=== PATIENT | male | born 1965 | race Caucasian/White ===

== ENCOUNTER 2018-10-19 12:55 | Emergency (ER) | payer SELFPAY ==
[2018-10-19] MEDS ORDERED: MORPHINE 4 MG/ML SYR ONE ×2 (13:38→15:46)
[2018-10-19] MEDS ORDERED: ONDANSETRON 4 MG/2 ML VIAL ONE (13:38)
[2018-10-19] MEDS ORDERED: NA CHLORIDE 0.9% 1,000 ML ONE (13:39)
[2018-10-19 13:43] LABS: Absolute Lymphocytes (CBC) 1.9 K/uL (0.7-4.9); Absolute Monocytes 0.8 K/uL (0.1-1.3); Eosinophils % 0.4 % (0-4.4); Hematocrit 46.9 % (39.6-49.0); Lymphocytes % 19.3 % (15.3-44.8); MCH 32.7 pg (27.0-35.0); MCV 93.7 fL (80-100); MPV 8.7 fL (7.6-11.3); Monocytes % 7.9 % (3.3-12.3); RBC Red Blood Cell Count 5.01 M/uL (4.33-5.43)
--- NOTE | 2018-10-19 14:55 | RAD REPORT ---
EXAM DESCRIPTION: CT - Abdomen Pelvis W Contrast - 10/19/2018 2:34 pm CLINICAL HISTORY: Abdominal pain with vomiting COMPARISON: none. TECHNIQUE: Computed axial tomography of the abdomen pelvis was obtained. 100 cc Isovue-300 was admin istered intravenously. Oral contrast was given All CT scans are performed using dose optimization technique as appropriate and may include automated exposure control or mA/KV adjustment according to patient size. FINDINGS: The liver, spleen, pancreas, adrenal and kidneys appear unremarkable. There is no evidence of diverticulitis. Bladder appears grossly normal. No ascites. Calcified right lower lobe granuloma IMPRESSION: No acute abnormality is displayed.
--- NOTE | 2018-10-19 16:46 | ER ---
Nurse's Notes [facility] Name: Jered Solano Age: 53 yrs Sex: Male : 1965 Arrival Date: 10/19/2018 Time: 12:59 Bed 14 Private MD: Diagnosis: Contusion of right front wall of thorax Presentation: 10/19 13:00 Presenting complaint: Patient states: i was playing football Wednesday and got hit in the tw2 ribs and i may have cracked one but i have been throwing up blood, bright red blood, and i cant keep anything down. Transition of care: patient was not received from another setting of care. Onset of symptoms was October 19, 2018. Risk Assessment: Do you want to hurt yourself or someone else? Patient reports no desire to harm self or others. Initial Sepsis Screen: Does the patient meet any 2 criteria? No. Patient's initial sepsis screen is negative. Does the patient have a suspected source of infection? No. Patient's initial sepsis screen is negative. Care prior to arrival: None. 13:00 Method Of Arrival: Ambulatory tw2 13:00 Acuity: MIAN 3 tw2 Historical: - Allergies: 13:01 No Known Allergies; tw2 - Home Meds: 13: None [Active]; tw2 - PMHx: 13:01 None; tw2 - PSHx: 13:01 None; tw2 - Immunization history:: Adult Immunizations up to date. - Social history:: Smoking status: Patient uses tobacco products, smokes one pack cigarettes per day. Patient uses street drugs, marijuana, "1/2 sack a week maybe". - Ebola Screening: : Patient denies travel to an Ebola-affected area in the 21 days before illness onset. Screenin:10 Abuse screen: Denies threats or abuse. Denies injuries from another. Nutritional ss screening: No deficits noted. Tuberculosis screening: No symptoms or risk factors identified. Never had TB. Fall Risk None identified. Assessment: 13:10 General: Appears in no apparent distress. comfortable, Behavior is calm, cooperative. ss Pain: Complains of pain in right lateral anterior chest and right lateral posterior chest Pain currently is 8 out of 10 on a pain scale. Quality of pain is described as aching, tender, Pain began 4days Is continuous, Aggravated by increased activity, repositioning. Neuro: Level of Consciousness is awake, alert, obeys commands, Oriented to person, place, time, situation. Cardiovascular: Capillary refill < 3 seconds is brisk in bilateral fingers. Respiratory: Airway is patent Respiratory effort is even, unlabored, Respiratory pattern is regular, symmetrical. GI: Reports epigastric pain, small amount of blood in emesis x 2-3 days. "it feels like stuff isn't going down.". : No signs and/or symptoms were reported regarding the genitourinary system. EENT: Oral mucosa is moist. Throat is clear. Derm: Skin is intact, is healthy with good turgor, Skin is dry, Skin is pink, warm \\T\\ dry. normal. Musculoskeletal: Circulation, motion, and sensation intact. Capillary refill < 3 seconds, is brisk, in bilateral fingers. Range of motion: intact in all extremities, Swelling absent. 14:25 Reassessment: Patient appears in no apparent distress at this time. Patient is alert, ss oriented x 3, equal unlabored respirations, skin warm/dry/pink. pt reports that pain is much better after morphine administration Patient states feeling better. 15:29 Reassessment: Patient appears in no apparent distress at this time. Patient and/or ph family updated on plan of care and expected duration. Pain level reassessed. Patient is alert, oriented x 3, equal unlabored respirations, skin warm/dry/pink. Pt c/o pain and requesting pain medication at this time, states, " The medicine helped for a little while but I'm really hurting again after going for all of those tests.". 17:05 Reassessment: Patient appears in no apparent distress at this time. Patient and/or ph family updated on plan of care and expected duration. Pain level reassessed. Patient is alert, oriented x 3, equal unlabored respirations, skin warm/dry/pink. Pt d/c home w/ family. Vital Signs: 13:01 BP 137 / 99; Pulse 109; Resp 18; Temp 98.0(O); Pulse Ox 99% on R/A; Pain 8/10; tw2 14:00 BP 132 / 87; Pulse 85; Resp 20; Pulse Ox 98% on R/A; ph 15:46 BP 118 / 87; Pulse 94; Resp 18; Pulse Ox 96% on R/A; ph 17:07 BP 122 / 87; Pulse 96; Resp 18; Temp 97.9; Pulse Ox 99% on R/A; ph ED Course: 12:59 Patient arrived in ED. sb2 13:01 Triage completed. tw2 13:01 Arm band placed on. tw2 13:02 D[facility] Cooper [facility]C [facility]. kb 13:02 Evre Jones MD is Attending Physician. kb 13:05 Melissa Mcmanus, RN is Primary Nurse. ph 13:10 Patient has correct armband on for positive identification. Bed in low position. Call ss light in reach. 13:39 Inserted saline lock: 20 gauge in right antecubital area, using aseptic technique. ss Blood collected. Patient maintains SpO2 saturation greater than 95% on room air. 14:25 Patient moved to CA via wheelchair. sj 14:32 CT completed. Patient tolerated procedure well. Patient moved back from CA. sj 15:47 No provider procedures requiring assistance completed. ph 17:06 IV discontinued, intact, bleeding controlled, No redness/swelling at site. Pressure ph dressing applied. Administered Medications: 13:34 Drug: NS 0.9% 1000 ml Route: IV; Rate: 1000 ml; Site: right antecubital; ss 17:08 Follow up: Response: No adverse reaction; IV Status: Completed infusion ph 13:34 Drug: Zofran 4 mg Route: IVP; Site: right antecubital; ss 14:25 Follow up: Response: No adverse reaction ss 13:39 Drug: morphine 4 mg Route: IVP; Site: right antecubital; ss 14:25 Follow up: Response: No adverse reaction; Pain is decreased ss 16:15 Drug: morphine 4 mg Route: IVP; Site: right antecubital; ph 17:08 Follow up: Response: No adverse reaction; Pain is decreased ph Outcome: 16:45 Discharge ordered by . kb 17:06 Discharged to home ambulatory, with family. ph 17:06 Condition: good 17:06 Discharge instructions given to patient, family, Instructed on discharge instructions, follow up and referral plans. medication usage, Demonstrated understanding of instructions, follow-up care, medications, Prescriptions given X 1. 17:09 Patient left the ED. ph Signatures: Dione Cooper FNP-C FNP-Ckb Jones, Susan sj Smirch, Shelby, RN RN ss Melissa Mcmanus, RN RN ph Toi, Amanda, RN RN tw2 Tahira Sánchez 2
--- NOTE | 2018-10-19 16:46 | EDPHYS ---
Physician Documentation [facility] Name: Jered Solano Age: 53 yrs Sex: Male : 1965 Arrival Date: 10/19/2018 Time: 12:59 Bed 14 Private MD: ED Physician Ever Jones HPI: 10/19 14:21 This 53 yrs old Male presents to ER via Ambulatory with complaints of RIB PAIN. kb 14:21 The patient or guardian reports chest pain that is located primarily in the right kb lateral posterior chest and right lateral anterior chest. Onset: The symptoms/episode began/occurred 5 day(s) ago. The pain does not radiate. Associated signs and symptoms: Pertinent positives: hematemesis, Pertinent negatives: abdominal pain, cough, diaphoresis, dizziness, headache, lower extremity pain, lower extremity swelling, lightheadedness, nausea, near syncope, palpitations, recent travel, shortness of breath, syncope. The chest pain is described as aching. Duration: The patient or guardian reports a single episode, that is still ongoing. Modifying factors: The symptoms are alleviated by nothing. the symptoms are aggravated by deep breath, movement, palpation of area. Severity of pain: At its worst the pain was moderate in the emergency department the pain is unchanged. The patient has not experienced similar symptoms in the past. Historical: - Allergies: 13: No Known Allergies; tw2 - Home Meds: 13: None [Active]; tw2 - PMHx: 13: None; tw2 - PSHx: 13: None; tw2 - Immunization history:: Adult Immunizations up to date. - Social history:: Smoking status: Patient uses tobacco products, smokes one pack cigarettes per day. Patient uses street drugs, marijuana, "1/2 sack a week maybe". - Ebola Screening: : Patient denies travel to an Ebola-affected area in the 21 days before illness onset. ROS: 14:20 Constitutional: Negative for fever, chills, and weight loss, Respiratory: Negative for kb shortness of breath, cough, wheezing, and pleuritic chest pain, Back: Negative for injury and pain, : Negative for injury, bleeding, discharge, and swelling, MS/Extremity: Negative for injury and deformity, Skin: Negative for injury, rash, and discoloration, Neuro: Negative for headache, weakness, numbness, tingling, and seizure. 14:20 Cardiovascular: Positive for chest pain, with cough, with movement, of the right lateral posterior chest and right lateral anterior chest, Negative for edema, orthopnea, palpitations, paroxysmal nocturnal dyspnea. 14:20 Abdomen/GI: Positive for hematemesis. Exam: 14:20 Constitutional: This is a well developed, well nourished patient who is awake, alert, kb and in no acute distress. Head/Face: Normocephalic, atraumatic. Cardiovascular: Regular rate and rhythm with a normal S1 and S2. No gallops, murmurs, or rubs. Normal PMI, no JVD. No pulse deficits. Respiratory: Lungs have equal breath sounds bilaterally, clear to auscultation and percussion. No rales, rhonchi or wheezes noted. No increased work of breathing, no retractions or nasal flaring. Abdomen/GI: Soft, non-tender, with normal bowel sounds. No distension or tympany. No guarding or rebound. No evidence of tenderness throughout. Back: No spinal tenderness. No costovertebral tenderness. Full range of motion. Skin: Warm, dry with normal turgor. Normal color with no rashes, no lesions, and no evidence of cellulitis. MS/ Extremity: Pulses equal, no cyanosis. Neurovascular intact. Full, normal range of motion. Neuro: Awake and alert, GCS 15, oriented to person, place, time, and situation. Cranial nerves II-XII grossly intact. Motor strength 5/5 in all extremities. Sensory grossly intact. Cerebellar exam normal. Normal gait. 14:20 Chest/axilla: Inspection: ecchymosis, that is mild, Palpation: tenderness, that is moderate, of the right lateral posterior chest and right lateral anterior chest, that totally reproduces the patient's complaints. Vital Signs: 13:01 BP 137 / 99; Pulse 109; Resp 18; Temp 98.0(O); Pulse Ox 99% on R/A; Pain 8/10; tw2 14:00 BP 132 / 87; Pulse 85; Resp 20; Pulse Ox 98% on R/A; ph 15:46 BP 118 / 87; Pulse 94; Resp 18; Pulse Ox 96% on R/A; ph 17:07 BP 122 / 87; Pulse 96; Resp 18; Temp 97.9; Pulse Ox 99% on R/A; ph MDM: 13:03 Patient medically screened. kb 14:20 Data reviewed: vital signs, nurses notes. Data interpreted: Pulse oximetry: on room air kb is 99 %. Interpretation: normal. 16:43 Counseling: I had a detailed discussion with the patient and/or guardian regarding: the kb historical points, exam findings, and any diagnostic results supporting the discharge/admit diagnosis, lab results, radiology results, the need for outpatient follow up, a family practitioner, a job specification writer, to return to the emergency department if symptoms worsen or persist or if there are any questions or concerns that arise at home. 16:43 ED course: No vomiting since arrival. HGB, HCT and BUN all normal. Pt educated to kb follow up with GI for continued symptoms. Return for worsening symptoms or other concerns. . 10/19 13:10 Order name: CBC with Diff 10/19 13:10 Order name: Basic Metabolic Panel 10/19 13:33 Order name: CT Abd/Pelvis - W/Contrast 10/19 13:45 Order name: CBC with Automated Diff; Complete Time: 13:46 EDMS 10/19 13:57 Order name: Basic Metabolic Panel; Complete Time: 13:58 EDMS 10/19 14:56 Order name: CT; Complete Time: 14:56 EDMS 10/19 13:10 Order name: IV Start; Complete Time: 13:28 kb 10/19 14:57 Order name: Ribs Right XRAY 10/19 16:11 Order name: PO challenge; Complete Time: 16:14 kb Administered Medications: 13:34 Drug: NS 0.9% 1000 ml Route: IV; Rate: 1000 ml; Site: right antecubital; ss 17:08 Follow up: Response: No adverse reaction; IV Status: Completed infusion ph 13:34 Drug: Zofran 4 mg Route: IVP; Site: right antecubital; ss 14:25 Follow up: Response: No adverse reaction ss 13:39 Drug: morphine 4 mg Route: IVP; Site: right antecubital; ss 14:25 Follow up: Response: No adverse reaction; Pain is decreased ss 16:15 Drug: morphine 4 mg Route: IVP; Site: right antecubital; ph 17:08 Follow up: Response: No adverse reaction; Pain is decreased ph Disposition: 18:37 Co-signature as Attending Physician, Ever Jones MD. rn Disposition: 10/19/18 16:45 Discharged to Home. Impression: Contusion of right front wall of thorax. - Condition is Stable. - Discharge Instructions: Rib Contusion. - Prescriptions for Tramadol 50 mg Oral Tablet - take 1 tablet by ORAL route every 8 hours as needed; 12 tablet. - Medication Reconciliation Form, Thank You Letter, Antibiotic Education, Prescription Opioid Use form. - Follow up: Emergency Department; When: As needed; Reason: Worsening of condition. Follow up: Private Physician; When: 2 - 3 days; Reason: Recheck today's complaints, Continuance of care, Re-evaluation by your physician. Signatures: Dispatcher [employer] EDMS Dione Cooper, MANAGER ELECTRICAL-C MANAGER ELECTRICAL-Ckb Ever Jones MD MD rn Smirch, Shelby RN RN Melissa Mcmanus RN RN Toi, Amanda RN RN tw2 Corrections: (The following items were deleted from the chart) 17:09 16:45 10/19/2018 16:45 Discharged to Home. Impression: Contusion of right front wall of ph thorax. Condition is Stable. Forms are Medication Reconciliation Form, Thank You Letter, Antibiotic Education, Prescription Opioid Use. Follow up: Emergency Department; When: As needed; Reason: Worsening of condition. Follow up: Private Physician; When: 2 - 3 days; Reason: Recheck today's complaints, Continuance of care, Re-evaluation by your physician. kb
--- NOTE | 2018-10-19 18:01 | RAD REPORT ---
EXAM DESCRIPTION: Ribs Right - 10/19/2018 3:22 pm CLINICAL HISTORY: Right rib pain FINDINGS: No fracture is seen
== END 2018-10-19 17:09 | disposition home or self-care (01) ==
LOC: ER 12:55
DX: S20.211A Contusion of right front wall of thorax, initial encounter (principal); F17.210 Nicotine dependence, cigarettes, uncomplicated
CPT/HCPCS: 36415; 74177; 80048; 85025; J2405; J7030; Q9967